=== PATIENT | female | born 1965 | race Caucasian/White ===

== ENCOUNTER 2020-01-14 00:18 | Outpatient (CLI) | payer BC, SELFPAY ==
[2020-01-14 20:23] LABS: SARS-CoV-2 RNA PCR Negative
== END 2020-01-14 00:19 | disposition home or self-care (01) ==
LOC: ANHCOVIDDT 00:18
PROVIDERS: PCP Internal Medicine; Visit Provider Internal Medicine Gastroenterology
DX: Z01.812 Encounter for preprocedural laboratory examination (principal); Z20.828 Contact with and (suspected) exposure to other viral communicable diseases
CPT/HCPCS: 87635; C9803; U0003

== ENCOUNTER 2020-01-16 00:20 | Day surgery (SDC) | payer BC, SELFPAY ==
[2020-01-04 13:20] VITALS: BMI 39.1
--- NOTE | 2020-01-16 07:31 | WPDANESEPPF ---
Anes - Initial Pre Proc Eval Procedure: Operation Date: 01/16/20 08:30 Proposed Procedures p Screening Colonoscopy - Evan Espinosa MD Date/Time: 01/16/20 07:31 Surgeon: Evan Espinosa MD Pre Op Diagnosis: Neoplasm Screening,Family HX of Colon CA Patient Data Age: 54 Gender: F Height: 5 ft 6 in Weight: 110 kg Allergies Allergy/AdvReac Type Severity Reaction Status Date / Time valsartan Allergy Severe gums Verified 01/04/20 13:17 swell, tongue itches Home Medications Medication Instructions Recorded Confirmed Type aspirin 325 mg tablet 325 mg PO DAILY 07/30/19 01/04/20 History cholecalciferol (vitamin D3) 50 50 mcg PO DAILY 07/30/19 01/04/20 History mcg (2,000 unit) capsule ibuprofen 200 mg tablet 200 mg PO Q6H PRN 07/30/19 01/04/20 History multivitamin 1 tablet PO DAILY 07/31/19 01/04/20 History cyclobenzaprine 10 mg tablet 10 mg PO .QHS PRN #30 tablet 12/04/19 01/04/20 Rx lansoprazole 30 mg capsule,delayed 30 mg PO DAILY #90 cap 12/17/19 01/04/20 Rx release losartan 100 mg tablet 100 mg PO DAILY #90 tablet 12/17/19 01/04/20 Rx hydrocodone 7.5 mg-ibuprofen 200 1 tablet PO Q12H PRN #40 tablet 01/11/20 Rx mg tablet Patient hx anesthesia problems: none Family hx anesthesia problems: other (mother confusion) [facility] Past Medical History Medical History Essential (primary) hypertension Pure hypercholesterolemia Smoker Tobacco abuse Family History Family History Mother Family history of malignant neoplasm of ovary Patient's mother is in good health Social History Social History Smoking status: Current every day smoker Second hand tobacco smoke exposure: No Alcohol intake: current Substance use: never Anes - Eval Final PreProcedure Day of Procedure 01/16/20 07:31 Patient weight: obese Heart: regular rate and rhythm Lungs: decreased breath sounds Airway: Mallampati scale class II Neurological: alert and oriented Last oral intake: >/= 8 hours ASA classification: III Emergent: no Anesthetic plan: proceed Anesthesia type and monitoring: general GIVS and standard monitoring Informed Consent: The patient's anesthetic plan and its attendant risks and benefits were discussed with the patient/family/POA. Questions were solicited and answers provided to the satisfaction of the patient/family/POA.
[2020-01-16 07:43] VITALS: BP 145/95; PULSE 99; RESP 16; TEMP 36.6; O2SAT 95; BMI 39.6
[2020-01-16] MEDS: LACTATED RINGERS 1,000 ML 150 ML IV CONT (07:55)
--- NOTE | 2020-01-16 08:04 | WPDGICN ---
Assessment and Plan Assessment and plan (1) Family history of colon cancer in father: Code(s): Z80.0 - Family history of malignant neoplasm of digestive organs Status: Acute Assessment and Plan: Patient's father had colon cancer. Plan is for surveillance colonoscopy now in about every 5 years in the future. GI Consult Note Consult date/time: 01/16/20 08:04 HPI: Fouzia Fair is a 54 year old female Seen in evaluation at the request of Dr. Ammon Thompson. Patient states that her current weight appetite bowel movements are normal. Family history is significant that her father had colon cancer. Patient's last exam was in 2014 was unremarkable. Patient states her current weight appetite bowel movements are normal. She denies abdominal pain. She has no blood in her bowel movements. Review of Systems Review of Systems: All systems reviewed & are unremarkable except as noted in HPI and below PMFSH Past Medical History Medical History Essential (primary) hypertension Pure hypercholesterolemia Smoker Tobacco abuse Family History Family History Mother Family history of malignant neoplasm of ovary Patient's mother is in good health Social History Social History Smoking status: Current every day smoker Second hand tobacco smoke exposure: No Alcohol intake: current Substance use: never Meds Home Medications and Allergies Home Medications Medication Instructions Recorded Confirmed Type aspirin 325 mg tablet 325 mg PO DAILY 07/30/19 01/04/20 History cholecalciferol (vitamin D3) 50 50 mcg PO DAILY 07/30/19 01/04/20 History mcg (2,000 unit) capsule ibuprofen 200 mg tablet 200 mg PO Q6H PRN 07/30/19 01/04/20 History multivitamin 1 tablet PO DAILY 07/31/19 01/04/20 History cyclobenzaprine 10 mg tablet 10 mg PO .QHS PRN #30 tablet 12/04/19 01/04/20 Rx lansoprazole 30 mg capsule,delayed 30 mg PO DAILY #90 cap 12/17/19 01/04/20 Rx release losartan 100 mg tablet 100 mg PO DAILY #90 tablet 12/17/19 01/04/20 Rx hydrocodone 7.5 mg-ibuprofen 200 1 tablet PO Q12H PRN #40 tablet 01/11/20 Rx mg tablet Allergies Allergy/AdvReac Type Severity Reaction Status Date / Time valsartan Allergy Severe gums Verified 01/16/20 07:41 swell, tongue itches Vital Signs Vital Signs - 24 hr 01/16/20 07:43 Temperature 97.9 F Pulse Rate 99 Respiratory Rate 16 Blood Pressure 145/95 H Pulse Oximetry 95 Exam Narrative: Exam Narrative: Physical exam reveals patient to be alert. Vital signs stable. HEENT exam unremarkable. Patient is anicteric. Lungs are clear to auscultation and percussion. Heart is without murmur or extra sounds. Abdominal exam bowel sounds are present soft nontender with no organomegaly. Digital external rectal exam is normal.
[2020-01-16 08:50] VITALS: BP 137/100; PULSE 90; RESP 15; O2SAT 98
[2020-01-16 09:00] VITALS: BP 148/110; PULSE 88; RESP 16; O2SAT 100
== END 2020-01-16 09:23 | disposition home or self-care (01) ==
PROVIDERS: PCP Internal Medicine; Visit Provider Internal Medicine Gastroenterology
PROC: 0DJD8ZZ Inspection of Lower Intestinal Tract, Via Natural or Artificial Opening Endoscopic (ICD-10-PCS; CPT 45378; principal; 2020-01-16 08:30)
DX: Z12.11 Encounter for screening for malignant neoplasm of colon (principal); Z80.0 Family history of malignant neoplasm of digestive organs; I10 Essential (primary) hypertension; E78.00 Pure hypercholesterolemia, unspecified; K64.8 Other hemorrhoids
CPT/HCPCS: 45378; J2704; J7120

== ENCOUNTER 2020-09-04 16:01 | Outpatient (CLI) | payer BC, SELFPAY | END 2020-09-04 16:02 | disposition home or self-care (01) | LOC: ANHCOVIDVC 16:01 | PROVIDERS: PCP Internal Medicine | DX: Z23 Encounter for immunization (principal) | CPT/HCPCS: 0001A; 91300 ==

== ENCOUNTER 2020-09-25 15:59 | Outpatient (CLI) | payer BC, SELFPAY | END 2020-09-25 16:00 | disposition home or self-care (01) | LOC: ANHCOVIDVC 15:59 | PROVIDERS: PCP Internal Medicine | DX: Z23 Encounter for immunization (principal) | CPT/HCPCS: 0002A; 91300 ==

== ENCOUNTER 2020-11-07 08:06 | Outpatient (CLI) | payer BC, SELFPAY ==
--- NOTE | ~2020-11-07 | MM_ITS ---
EXAMINATION: MM screening amirah BI w mary HISTORY: Screening mammogram TECHNIQUE: Craniocaudal and mediolateral oblique 3-D tomosynthesis images were obtained and synthetic 2-D images were generated. CAD analysis was submitted and interpreted. COMPARISON: 02/02/2018, 12/14/2016, 03/25/2015 bilateral digital screening mammogram examinations BREAST PARENCHYMAL COMPOSITION: There are scattered areas of fibroglandular density. FINDINGS: There is no evidence of suspicious mass, calcification, or architectural distortion to sugg est malignancy in either breast. There has been no suspicious interval change. IMPRESSION: 1. No mammographic evidence of malignancy. 2. Recommend routine screening mammography in one year. BI-RADS Category 1: Negative Reviewed, dictated and finalized at location A.
== END 2020-11-07 08:07 | disposition home or self-care (01) ==
LOC: ANHIMG 08:08
PROVIDERS: PCP Internal Medicine; Visit Provider Obstetrics & Gynecology
DX: Z12.31 Encounter for screening mammogram for malignant neoplasm of breast (principal)
CPT/HCPCS: 77063; 77067

== ENCOUNTER 2024-01-03 09:37 | Outpatient (CLI) | payer BC, SELFPAY ==
--- NOTE | ~2024-01-03 | US_ITS ---
EXAMINATION: US thyroid DATE: 01/03/2024 09:54 INDICATION: Thyroid nodule. TECHNIQUE: Multiple ultrasound images of the thyroid were obtained. COMPARISON: None. FINDINGS: The right thyroid lobe measures 4.8 x 2.3 x 2.8 cm. The left thyroid lobe measures 5.2 x 2.1 x 2.1 c m. In the left thyroid lobe, there is a 2.3 cm solid, hypoechoic, wider than tall nodule with lobula zayra margin without echogenic foci (TI-RADS TR4). In the right thyroid lobe, there is a 3.0 cm solid, isoechoic, wider than tall nodule with smooth margin without echogenic foci (TR3). IMPRESSION: 1. Thyroid nodules. Ultrasound-guided fine-needle aspiration of 2 nodules is recommended. Reviewed, dictated and finalized at location A. IMPRESSION: 1. Thyroid nodules. Ultrasound-guided fine-needle aspiration of 2 nodules is re commended.
== END 2024-01-03 09:38 ==
PROVIDERS: PCP Obstetrics & Gynecology; Visit Provider Obstetrics & Gynecology
DX: E04.2 Nontoxic multinodular goiter (principal)
CPT/HCPCS: 76536

== ENCOUNTER 2024-06-27 12:31 | Outpatient (CLI) | payer BC, SELFPAY ==
--- NOTE | ~2024-06-27 | US_ITS ---
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 Potential risk included were not limited to bleeding, infection, and nondiagnostic specimen. The right neck was prepped and draped in the usual sterile manner. 3 cc 1% lidocaine was used for lo trell anesthesia. 6 passes were made with a 25G needle into the right thyroid lesion. Appropriate need le location was documented with continuous sonographic guidance. The specimens were passed to the cy topathologist in the room. All needles were removed and a sterile bandage applied over the biopsy site. The patient tolerated t he procedure without immediate complications or complaints. Attention was then turned to the left neck: The left neck was prepped and draped in the usual sterile manner. 3 cc 1% lidocaine was used for loc al anesthesia. 6 passes were made with a 25G needle into the left thyroid lesion. Appropriate needle location was documented with continuous sonographic guidance. The specimens were passed to the cyto pathologist in the room. All needles were removed and a sterile bandage applied over the biopsy site. The patient tolerated t he procedure without immediate complications or complaints. FINDINGS: Sonographic images demonstrate needles advanced into the bilateral lesions for biopsy. IMPRESSION: 1. Successful ultrasound guided biopsy of a right-sided thyroid nodule. 2. Successful ultrasound-guided biopsy of a left-sided thyroid nodule Please refer to pathology report for final histologic analysis. Reviewed, dictated and finalized at location A. 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
--- OUTSIDE RECORDS SUMMARY | 2024-06-27 13:22 | XMS_ITS | Clinical Summary ---
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 Gender Identity Not on file Sexual Orientation Not on file Plan of Treatment Health Maintenance Due Date Last Done Comments Hepatitis C Virus (HCV) Screening 1967 TdaP Immunization 1967 Hepatitis B Immunization (1 of 3 - 19+ 3-dose series) 1986 Pap Smear 02/21/1988 Cervical Cancer Screening (CCS) 1997 HPV/Cotest 1997 Colonoscopy 02/21/2012 Colorectal Cancer Screening 02/21/2012 Cologuard 2017 Immunochemical Fecal Occult Blood 2017 Mammogram 2017 Pneumococcal Immunization (5 0+ years) (1 of 1 - PCV) 2017 Zoster Immunization (1 of 2) 2017 Influenza Immunization (#1) 2024 SARS-COV-2 Immunization (2023- season) 2024 Respiratory Syncytial Virus (RSV) Immunization (Adult) (1 - 1-dose 75+ series) 2042 Meningococcal Immunization (ACWY) Aged Out No longer eligible based on patient's age to complete this topic Pneumococcal Immunization Combined Aged Out No longer eligible based on patient's age to complete this topic Rotavirus Immunization Aged Out No lo nger eligible based on patient's age to complete this topic
== END 2024-06-27 12:32 | disposition home or self-care (01) ==
PROVIDERS: PCP Internal Medicine; Visit Provider Internal Medicine
DX: E07.9 Disorder of thyroid, unspecified (principal)
CPT/HCPCS: 10005; 88172; 88173; 88305

== ENCOUNTER 2025-02-28 07:20 | Outpatient (CLI) | payer BC, SELFPAY ==
--- NOTE | ~2025-02-28 | XR_ITS ---
EXAMINATION: XR hand RT min 3V, 02/28/2025 7:30 CDT HISTORY: M65.311 - Trigger thumb, right thumb COMPARISON: No comparisons available. Findings: No acute fracture or malalignment. No significant degenerative changes. Soft tissues unremarkable. Impression: No acute fracture or malalignment. Reviewed, dictated and finalized at location P. Impression: No acute fracture or malalignment.
== END 2025-02-28 07:21 | disposition home or self-care (01) ==
PROVIDERS: PCP Plastic Surgery; Visit Provider Internal Medicine
DX: M65.311 Trigger thumb, right thumb (principal)
CPT/HCPCS: 73130

== ENCOUNTER 2025-04-02 09:55 | Outpatient (CLI) | payer BC, SELFPAY ==
--- NOTE | 2025-04-02 10:40 | NEURO_ITS ---
Impression: # Complains of numbness of hands. # Bilateral Ulnar Neuropathy, left more than right. # Bilateral Carpal Tunnel Syndrome, left more than right. # Normal Needle/ EMG exam. Nerve Conduction Studies ?Stim Site NR Peak (ms) P-T Amp (?V) Site1 Site2 Delta-P (ms) Dist (cm) Guille (m/s) Left Median Anti Sensory (2-3nd Digit) Wrist ? 4.8 9.5 Wrist 2-3nd Digit 4.8 14.0 29 Wrist ? 4.7 9.8 Wrist 2-3nd Digit 4.8 14.0 29 Right Median Anti Sensory (2-3nd Digit) Wrist ? 3.7 14.3 Wrist 2-3nd Digit 3.7 14.0 38 Wrist ? 3.8 14.4 Wrist 2-3nd Digit 3.7 14.0 38 Left Radial Anti Sensory (Base 1st Digit) Wrist ? 2.1 17.6 Wrist Base 1st Digit 2.1 0.0 Right Radial Anti Sensory (Base 1st Digit) Wrist ? 2.0 17.4 Wrist Base 1st Digit 2.0 0.0 Left Ulnar Anti Sensory (5th Digit) Wrist ? 2.1 22.1 Wrist 5th Digit 2.1 14.0 67 Right Ulnar Anti Sensory (5th Digit) Wrist ? 2.3 20.8 Wrist 5th Digit 2.3 14.0 61 ?Stim Site NR Onset (ms) O-P Amp (mV) Site1 Site2 Delta-0 (ms) Dist (cm) Guille (m/s) Left Median Motor (Abd Poll Brev) Wrist ? 4.6 0.8 Elbow Wrist 5.7 31.0 54 Elbow ? 10.3 0.8 Right Median Motor (Abd Poll Brev) Wrist ? 3.8 1.6 Elbow Wrist 4.9 28.0 57 Elbow ? 8.7 1.7 Left Ulnar Motor (Abd Dig Minimi) Wrist ? 2.4 5.3 A Elbow Wrist 5.9 31.0 53 A Elbow ? 8.3 3.8 B Elbow Wrist 4.3 23.0 53 B Elbow ? 6.7 2.1 Right Ulnar Motor (Abd Dig Minimi) Wrist ? 2.0 5.7 A Elbow Wrist 5.9 31.0 53 A Elbow ? 7.9 4.0 B Elbow Wrist 4.0 21.0 53 B Elbow ? 6.0 3.3 F Wave Studies ?NR F-Lat (ms) L-R F-Lat (ms) Left Median (Mrkrs) (Abd Poll Brev) ? 31.67 4.09 Right Median (Mrkrs) (Abd Poll Brev) ? 27.58 4.09 Left Ulnar (Mrkrs) (Abd Dig Min) ? 30.63 2.85 Right Ulnar (Mrkrs) (Abd Dig Min) ? 27.78 2.85 Electromyography ?Side Muscle Nerve Root Ins Act Fibs Amp Dur Recrt Comment Right 1stDorInt Ulnar C8-T1 Nml Nml Nml Nml Nml Right Ext Indicis Radial (Post Int) C7-8 Nml Nml Nml Nml Nml Right Ext Digitorum Radial (Post Int) C7-8 Nml Nml Nml Nml Nml Right BrachioRad Radial C5-6 Nml Nml Nml Nml Nml Right PronatorTeres Median C6-7 Nml Nml Nml Nml Nml Right Abd Poll Brev Median C8-T1 Nml Nml Nml Nml Nml Right ABD Dig Min Ulnar C8-T1 Nml Nml Nml Nml Nml Right FlexPolLong Median (Ant Int) C7-8 Nml Nml Nml Nml Nml Right Abd Poll Long Radial (Post Int) C7-8 Nml Nml Nml Nml Nml Left 1stDorInt Ulnar C8-T1 Nml Nml Nml Nml Nml Left Ext Indicis Radial (Post Int) C7-8 Nml Nml Nml Nml Nml Left Ext Digitorum Radial (Post Int) C7-8 Nml Nml Nml Nml Nml Left BrachioRad Radial C5-6 Nml Nml Nml Nml Nml Left PronatorTeres Median C6-7 Nml Nml Nml Nml Nml Left Abd Poll Brev Median C8-T1 Nml Nml Nml Nml Nml Left ABD Dig Min Ulnar C8-T1 Nml Nml Nml Nml Nml Left FlexPolLong Median (Ant Int) C7-8 Nml Nml Nml Nml Nml Left Abd Poll Long Radial (Post Int) C7-8 Nml Nml Nml Nml Nml
--- OUTSIDE RECORDS SUMMARY | 2025-04-02 11:13 | XMS_ITS | Patient Health Record ---
Author Organization [facility] Address [address] [place], [place] [id number] Care Team Providers Care Plastic Joint Maker Name Role Phone JAZZY ENCINAS Unavailable [phone] Ammon Thompson Unavailable Unavailable Reason For Referral No Information Social History Social History Additional Details Category Social Info Options Details Migrated Social History Migrated Social History Alcohol intake : , History of tobacco use : Current every day smoker , Smoking Status : Current every day smoker Plan Of Treatment No Information Insurance Providers Payer Name Payer Address Payer Phone Subscriber Number Group Number Insured Name Patient Relationship to Insured Coverage Start Date Coverage End Date [facility] ATTN CLAIMS [address] [place] [address] [id number] [id number] FOX Self - patient is the insured
--- OUTSIDE RECORDS SUMMARY | 2025-04-02 11:13 | XMS_ITS | Clinical Summary ---
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 Gender Identity Not on file Sexual Orientation Not on file Plan of Treatment Health Maintenance Due Date Last Done Comments Hepatitis C Virus (HCV) Screening 1967 TdaP Immunization 1967 Hepatitis B Immunization (1 of 3 - 19+ 3-dose series) 1986 Pap Smear 02/21/1988 Cervical Cancer Screening (CCS) 1997 HPV/Cotest 1997 Cologuard 02/21/2012 Colonoscopy 02/21/2012 Colorectal Cancer Screening 02/21/2012 Immunochemical Fecal Occult Blood 02/21/2012 Pneumococcal Immunization (5 0+ years) (1 of 1 - PCV) 2017 Zoster Immunization (1 of 2) 2017 Influenza Immunization (#1) 2025 SARS-COV-2 Immunization ( - season) 2025 Respiratory Syncytial Virus (RSV) Immunization (Adult) (1 - 1-dose 75+ series) 2042 Human Papillomavirus (HPV) Immunization Aged Out No longer eligible b ased on patient's age to complete this topic Meningococcal Immunization (ACWY) Aged Out No longer eligible based on patient's age to complete this topic Rotavirus Immunization Aged Out No lo nger eligible based on patient's age to complete this topic
== END 2025-04-02 09:56 | disposition home or self-care (01) ==
PROVIDERS: PCP Internal Medicine; Visit Provider Plastic Surgery
DX: G56.23 Lesion of ulnar nerve, bilateral upper limbs (principal); G56.03 Carpal tunnel syndrome, bilateral upper limbs
CPT/HCPCS: 95886; 95911